=== PATIENT | female | born 1960 | race Caucasian/White ===

== ENCOUNTER → 2016-10-09 | Outpatient (CLI) | payer MEDICARE ==
--- NOTE | ~2016-10-09 | MR164 ---
[facility] A Service of [facility] RADIOLOGY TEXT RESULTS PATIENT: JIM GONZALEZ LOCATION: [facility] : 56 UNIT #: [id number] AGE: [address]: Keny Carr MD SEX: F ORDER DR: [id number] [facility] [address] [place], [place] [address] [id number] O MR#: [id number] Acc #: [id number] NAME: JIM GONZALEZ. : 1960 SEX: F STUDY DATE/TIME: 10/09/2016 9:40 UNIT: [facility] ROOM: STUDY DESCRIPTION: MR Shoulder Wo Contrast Lt Attending Physician: Keny Carr M.D. Referring Physician: Keny Carr M.D. Ordering Physician: Keny Carr M.D. Primary Care Physician: Primary Care Physician No MRI CENTER REPORT This report is preliminary unless electronic signature is present. EXAM Left shoulder MRI without contrast 10/09/2016 HISTORY 56-year-old female with left shoulder pain and limited range of motion for 3 - 4 months. No specific injury. No prior left shoulder surgery. COMPARISON Left shoulder x-rays 10/03/2016 TECHNIQUE Routine unenhanced multiplanar, multisequence high field MR imaging of the left shoulder was performed. FINDINGS There is moderate supraspinatus and infraspinatus tendinopathy. No evidence of tear. Teres minor and subscapularis tendons are intact. Long biceps tendon is intact and well positioned in the bicipital groove. No evidence of a labral tear. There is some minimal subchondral marrow edema in the inferior aspect of the glenoid, suggesting overlying chondromalacia. However, no high-grade chondral defects are identified. No glenohumeral effusion. Acromioclavicular joint is within normal limits. No subacromial spur. Minimal inflammation of the subacromial/subdeltoid bursa. Bone marrow signal is otherwise within expected limits. Visualized musculature is unremarkable. IMPRESSION 1. Moderate supraspinatus and infraspinatus tendinopathy. No evidence of a rotator cuff tear. [facility]. [facility] A Service of [facility] & [facility] RADIOLOGY TEXT RESULTS PATIENT: JIM GONZALEZ LOCATION: [facility] : 56 UNIT #: [id number] AGE: [address]: Keny Carr MD SEX: F ORDER DR: 2. No significant labral pathology. 3. Minimal subchondral marrow edema in the inferior aspect of the glenoid, suggesting overlying chondromalacia. However, no high-grade articular cartilage loss identified. 4. Minimal inflammation subacromial/subdeltoid bursa. Dictated by... Raj Ventura M.D. THIS IS AN ELECTRONICALLY VERIFIED REPORT Raj Ventura M.D. at 10/11/2016 4:11 PM DESI/dimitris TD: 10/10/2016 22:44 JOB #: [id number] MRI CENTER REPORT Page 1 of 1 COPY
== END | disposition home or self-care (01) ==
LOC: CMRI 09:04
DX: M25.512 Pain in left shoulder (principal); M75.82 Other shoulder lesions, left shoulder; M75.52 Bursitis of left shoulder; R60.0 Localized edema; Z87.39 Personal history of other diseases of the musculoskeletal system and connective tissue
CPT/HCPCS: 73221